=== PATIENT | male | born 1960 | race Caucasian/White ===

== ENCOUNTER 2017-06-11 04:24 | Inpatient (IN) | END 2017-06-12 17:28 | disposition home or self-care (01) | DRG 313 ==

== ENCOUNTER 2017-06-12 23:01 | Inpatient (IN) | END 2017-06-15 10:15 | disposition home or self-care (01) | DRG 247 ==

== ENCOUNTER 2017-07-03 01:24 | Inpatient (IN) | END 2017-07-05 12:16 | disposition home or self-care (01) | DRG 305 ==

== ENCOUNTER 2019-01-02 12:05 | Emergency (ER) | payer OTHER ==
[~2019-01-02] VITALS: Wt 91.8 kg
[~2019-01-02 12:05] MED LIST: ASPI-903 PO; ATOR40TA68 PO; CARV6.2579 PO; CLOP75TA28 PO; HYDR-3671 PO; HYDR-4011 PO; LORA-441 PO; LORA10TA3 PO; LOSA50TA14 PO; SUMA50TA3 PO; TRAM50TA2 PO
[2019-01-02 12:08] VITALS: Wt 91.8 kg
[2019-01-02] MEDS ORDERED: KETOROLAC 15 MG INJ IM STA (12:30)
[2019-01-02 12:39] VITALS: BP 166/110; PULSE 52; RESP 17
--- NOTE | 2019-01-02 12:39 | ERD ---
ER Documentation Chief Complaint Chief Complaint LEFT HIP PAIN HPI 58 yo M who presents to ED asking for norco for his chronic left hip pain. The patient states that while gardening he aggravated his left hip. He is asking for [place] which is help for his pain in the past. He has not taken any Tylenol or Motrin but then he states that he took Tylenol just prior to arrival. Patient states that he has seen somebody for this injury in the past just within the past week. Patient also is noted to have elevated blood pressure. He denies any chest pain shortness of breath or headache. He denies any diaphoresis or dyspnea on exertion. He states a known history of hypertension. He took his blood pressure medication this morning but usually takes hydralazine and is due for his hydralazine. ROS All systems reviewed and are negative except as per history of present illness. 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 [employer] DEVELOPER 06/15/17 Clopidogrel Bisulfate (Clopidogrel) 75 Mg Tablet, 75 MG PO DAILY, #30 TAB Prov:YISSEL CLARKE [employer]. [employer] DEVELOPER 06/15/17 Reported Medications Sumatriptan Succinate* (Sumatriptan Succinate*) 50 Mg Tablet, 50 MG PO BID PRN for MIGRAINE HEADACHE, TAB May repeat after 2 hours if needed; MAX 200 mg/24 hours 07/03/17 Loratadine* (Loratadine*) 10 Mg Tablet, 10 MG PO DAILY, #30 TAB 07/03/17 Aspirin* (Aspirin* Chew) 81 Mg Tab.chew, 81 MG PO DAILY, TAB.CHEW 07/03/17 Lorazepam* (Ativan*) 0.5 Mg Tablet, 0.5 MG PO BID PRN for ANXIETY, #30 TAB 06/11/17 Hydrocodone/Acetaminophen ([place] 5-325 Tablet) 1 Each Tablet, 1 EACH PO for PAIN, #1 TAB 06/11/17 Tramadol HCl (Tramadol HCl) 50 Mg Tablet, 50 MG PO Q6H PRN for PAIN, #120 TAB 06/11/17 Losartan Potassium* (Losartan Potassium*) 50 Mg Tablet, 50 MG PO BID, TAB 06/11/17 Hydralazine Hcl* (Hydralazine Hcl*) 25 Mg Tab, 25 MG PO Q6 for ELEVATED BLOOD PRESSURE MDD >160/100, #120 TAB 06/11/17 Allergies Allergies: Coded Allergies: tetracycline (Verified Allergy, Severe, RASH, 06/11/17) PMhx/Soc History of Surgery: Yes (Hip 1994 Craniotomy.) Anesthesia Reaction: No Hx Neurological Disorder: No Hx Respiratory Disorders: Yes (Asthma) Hx Cardiac Disorders: Yes (CAD) Hx Psychiatric Problems: Yes (Anxiety) Hx Miscellaneous Medical Probl: Yes (HEP C.) Hx Alcohol Use: No Hx Substance Use: No Hx Tobacco Use: No FmHx Family History: No diabetes Physical Exam Vitals Vital Signs Date Temp Pulse Resp B/P (MAP) Pulse Ox O2 O2 Flow FiO2 Time Delivery Rate 01/02/19 97.5 62 18 172/11 99 12:08 (64) Physical Exam general: Well developed, well nourished, no acute distress Head: Normocephalic, atraumatic. Eyes: EOM intact ENT: Moist mucous membranes Neck: Full ROM Respiratory: No respiratory distress Cardiovascular: Well perfused distally Abdominal: Nondistended : Deferred MSK: Patient with full flexion and extension of the left hip. Normal internal and external rotation. Neurovascular intact. The patient is ambulatory with a steady gait without a limp. No bony abnormalities or focal tenderness noted. Neurologic: Alert and oriented, moving all extremities, normal speech, steady gait Skin: No rash Psych: Normal mood Results 24 hrs Current Medications Medications Dose Sig/Aleah Start Time Status Last (Trade) Ordered Route PRN Stop Time Admin Dose Reason Admin Hydralazine 25 mg ONCE ONCE 01/02/19 DC HCl PO 12:30 (Apresoline) 01/02/19 12:32 Ketorolac 15 mg ONCE STAT 01/02/19 DC Tromethamine IM 12:30 (Toradol) 01/02/19 12:32 Procedures/MDM The patient's presentation is consistent with chronic left hip pain. Reviewing the patient's CURES database he has 23 visits in the last 1 year for similar related issues including high blood pressure in the hip pain. His most recent visit was on 12/25 at [facility] where he received a prescription for narcotic pain medication. [facility] database reveals that on the 16th of this month, 7 days ago he filled 24 tablets of 5 mg hydrocodone. Explain to the patient that I cannot refill his narcotic prescription. The patient drove here and cannot receive narcotics in the emergency room. He was offered Toradol. He is requesting his hydralazine, 25 mg which has been given. The patient has no signs or symptoms concerning for endorgan dysfunction. The patient's left hip pain is chronic without signs of fracture or septic arthritis. I do not believe that laboratory testing or diagnostic imaging is necessary at this time peer the patient was advised that he needs to follow-up with his primary care physician and cannot seek prescriptions for narcotic medications in emergency room setting for his chronic issues. The patient does not have an identifiable emergent medical condition that warrants inpatient hospitalization at this time. The patient is deemed safe for discharge with outpatient follow-up. We discussed follow up with the patient's primary care doctor within 24 to 48 hours as needed. We also discussed return to the emergency room for worsening symptoms or worsening condition. Outpatient referral: None required Discharge Medications: None required Departure Diagnosis: Primary Impression: Asymptomatic hypertensive urgency Additional Impressions: Chronic left hip pain Narcotic dependence Condition: Stable Patient Instructions: Chronic Pain, Hypertension, Established, Out Of Control Referrals: COMMUNITY CLINICS YOU HAVE RECEIVED A MEDICAL SCREENING EXAM AND THE RESULTS INDICATE THAT YOU DO NOT HAVE A CONDITION THAT REQUIRES URGENT TREATMENT IN THE EMERGENCY DEPARTMENT. FURTHER EVALUATION AND TREATMENT OF YOUR CONDITION CAN WAIT UNTIL YOU ARE SEEN IN YOUR DOCTORS OFFICE WITHIN THE NEXT 1-2 DAYS. IT IS YOUR RESPONSIBILITY TO MAKE AN APPOINTMENT FOR FOLOW-UP CARE. IF YOU HAVE A PRIMARY DOCTOR --you should call your primary doctor and schedule an appointment IF YOU DO NOT HAVE A PRIMARY DOCTOR YOU CAN CALL OUR PHYSICIAN REFERRAL HOTLINE AT IF YOU CAN NOT AFFORD TO SEE A PHYSICIAN YOU CAN CHOSE FROM THE FOLLOWING [facility] CLINICS [facility] [address] [facility] [address] [email or web address] [address] [facility] [address] [facility] [address] [facility]. [facility] [address] [facility]. [facility] YOU HAVE RECEIVED A MEDICAL SCREENING EXAM AND THE RESULTS INDICATE THAT YOU DO NOT HAVE A CONDITION THAT REQUIRES URGENT TREATMENT IN THE EMERGENCY DEPARTMENT. FURTHER EVALUATION AND TREATMENT OF YOUR CONDITION CAN WAIT UNTIL YOU ARE SEEN IN YOUR DOCTORS OFFICE WITHIN THE NEXT 1-2 DAYS. IT IS YOUR RESPONSIBILITY TO MAKE AN APPOINTMENT FOR FOLOW-UP CARE. IF YOU HAVE A PRIMARY DOCTOR --you should call your primary doctor and schedule and appointment IF YOU DO NOT HAVE A PRIMARY DOCTOR YOU CAN CALL OUR PHYSICIAN REFERRAL HOTLINE AT . IF YOU CAN NOT AFFORD TO SEE A PHYSICIAN YOU CAN CHOSE FROM THE FOLLOWING [facility] INSTITUTIONS: [facility] [address] [place] [address] [facility] [address] [place], [place] [id number] [place] [address] + [facility] [address] [place] [address] Additional Instructions: Call your primary care doctor TOMORROW for an appointment during the next 1 WEEK.Tell the patient care secretary that you were referred from this facility.See the doctor sooner or return here if your condition worsens before your appointment time. HERNESTO HOWARD MD Jan 02, 2019 12:39
== END 2019-01-02 12:41 | disposition home or self-care (01) ==
LOC: E/R 12:05
DX: I16.0 Hypertensive urgency (principal); F11.20 Opioid dependence, uncomplicated; I10 Essential (primary) hypertension; I25.10 Atherosclerotic heart disease of native coronary artery without angina pectoris; J45.909 Unspecified asthma, uncomplicated; Z79.02 Long term (current) use of antithrombotics/antiplatelets; Z79.82 Long term (current) use of aspirin
CPT/HCPCS: 96372; J1885; Z7502; Z7610